=== PATIENT | female | born 2000 | race Hispanic/Latino ===

== ENCOUNTER 2025-03-28 12:24 | Emergency (ER) | payer OTHER ==
[~2025-03-28] VITALS: Ht 157.5 cm; Wt 52.2 kg
--- NOTE | 2025-03-28 12:33 | ERN ---
ED Note History of Present Illness Stated Complaint: FEVER Chief Complaint: Fever Time Seen by MD: 12:27 Dictation: PATIENT IS A 25-YEAR-OLD FEMALE COMING IN TODAY WITH COMPLAINTS OF FLU-LIKE SYMPTOMS FOR THE LAST 5-6 DAYS TO INCLUDE SORE THROAT PAINFUL SWALLOWING SHE HAS HAD A DRY COUGH HEADACHE. ADDITIONALLY SHE HAS HAD NAUSEA VOMITING IN THE PAST AND MALAISE. NO LOSS OF TASTE OR SMELL. HER LAST INTAKE OF ANTIPYRETICS WAS MOTRIN AT MIDNIGHT. STATES SHE SAW HER PRIMARY CARE DOCTOR TWO DAYS AGO WHO SWABBED HER FOR SARS AND INFLUENZA TOLD HER EVERYTHING WAS NEGATIVE GAVE HER IBUPROFEN. SHE STATES SHE HAS NOT BEEN FEELING ANY BETTER AND COMING IN FOR FURTHER EVALUATION. SHE HAS HAD NO ABDOMINAL PAIN. NO CHANGE IN URINATION. SHE HAS A COUGH IS DRY. 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 Allergies: Coded Allergies: No Known Allergies (Unverified Allergy, Unknown, 03/28/25) Past Medical History RN Note Reviewed/Agreed w/PFSH: Yes Review of System Dictation CONSTITUTIONAL: NEGATIVE EXCEPT FOR HPI FEVER CHILLS HEAD/FACE: NEGATIVE EXCEPT FOR HPI EENT: NEGATIVE EXCEPT FOR HPI SORE THROAT WITH PAINFUL SWALLOWING RESPIRATORY: NEGATIVE EXCEPT FOR HPI DRY PERSISTENT COUGH GASTROINTESTINAL/ABDOMINAL: NEGATIVE EXCEPT FOR HPI GENITOURINARY: NEGATIVE EXCEPT FOR HPI MUSCULOSKELETAL: NEGATIVE EXCEPT FOR HPI INTEGUMENTARY: NEGATIVE EXCEPT FOR HPI NEUROLOGICAL/PSYCH: NEGATIVE EXCEPT FOR HPI HEMATOLOGIC/LYMPHATIC: NEGATIVE EXCEPT FOR HPI ALL SYSTEMS NEGATIVE, EXCEPT NOTED ABOVE. 13 POINT REVIEW OF SYSTEMS ASSESSED AND ALL NEGATIVE EXCEPT FOR ABOVE. Initial Vital Sign VS Vital Signs Date Time Temp Pulse Resp B/P (MAP) Pulse Ox O2 Delivery O2 Flow Rate FiO2 03/28/25 12:29 102.7 98 20 135/76 98 Room Air 03/28/25 13:17 0 21 Physical Exam Dictation VITAL SIGNS REVIEWED MILD ACUTE DISTRESS, WELL DEVELOPED, NOURISHED. HEAD AND FACE: NON-TRAUMATIC. EYES: PERRL, PINK CONJUNCTIVAS, EYELID NO TRAUMA, ANTERIOR CHAMBER WITH ARCUS SENILIS. EARS: PINNAS INTACT AND NO SIGNS OF TRAUMA OR ERYTHEMA EAR CANALS CLEAR AND NO DISCHARGE TM NO ERYTHEMA NOSE: NO DISCHARGE, NO BLEEDING. OROPHARYNX: MOUTH NORMAL, TONGUE PINK, PHARYNX CLEAR, MODERATE PHARYNGEAL ERYTHEMA, TONSILS NO EXUDATES, NO ABSCESSES NOTED, MUCOUS MEMBRANE MOIST UVULA MIDLINE, VOICE IS CLEAR NECK: SUPPLE, NON-TENDER, NO THYROMEGALY, NO MASSES, NO JVD, NO BRUITS BREAST:DEFERRED CHEST:NO TENDERNESS, NO CREPITUS, NO PARADOXICAL MOVEMENT, NO RETRACTIONS LUNGS:CLEAR, WELL-VENTILATED, SYMMETRIC, NO RALES, NO WHEEZING, NO RHONCHI, NO STRIDOR, GOOD BREATH SOUNDS BILATERALLY INTERMITTENT DRY COUGH NOTED NO TACHYPNEA NO RETRACTIONS HEART: REGULAR RATE, REGULAR RHYTHM, NO MURMUR, NO GALLOPS VASCULAR: NO PERIPHERAL EDEMA, ABDOMEN: SOFT, POSITIVE BOWEL SOUNDS, NONDISTENDED, NO GUARDING, NONTENDER, NO REBOUND, NO MASSES NO HEPATOMEGALY, NO SPLENOMEGALY, NO COVINGTON'S SIGN, NO HERNIAS. RECTAL: DEFERRED GENITAL: DEFERRED NEUROLOGICAL: NORMAL SPEECH, MOTOR FUNCTION INTACT, SENSORY FUNCTION INTACT MUSCULOSKELETAL: NECK NONTENDER, FULL RANGE OF MOTION, BACK NONTENDER, FULL RANGE OF MOTION, EXTREMITIES: NONTENDER, FULL RANGE OF MOTION SKIN: COLOR PINK, DRY, NO TURGOR, NO RASH, NO LACERATIONS, NO ABRASIONS, NO CONTUSIONS. LYMPHATIC: DEFERRED Results (Laboratory/Radiology) Laboratory/Radiology Laboratory Tests Test 03/28/25 12:30 03/28/25 12:38 Urine Color YELLOW (YELLOW) Urine Appearance CLOUDY (CLEAR) H Urine pH 5.5 (5.0-8.0) Urine Specific [place] 1.019 (1.001-1.031) Urine Protein 20 mg/dL (NEGATIVE) H Urine Glucose (UA) NEGATIVE mg/dL (NEGATIVE) Urine Ketones NEGATIVE mg/dL (NEGATIVE) Urine Occult Blood +- (TRACE) (NEGATIVE) H Urine Nitrate NEGATIVE (NEGATIVE) Urine Bilirubin NEGATIVE mg/dL (NEGATIVE) Urine Urobilinogen 2.0 mg/dL (0.2-1.0) H Urine Leukocyte Esterase NEGATIVE Erika/uL Urine RBC 2-5 /HPF (0-1) H Urine WBC 11-25 /HPF (0-1) H Urine Squamous Epithelial Cells FEW /HPF (0-2) Urine Bacteria None /HPF (None Seen) Influenza Type A Antigen Negative For Type A Influenza Type B Antigen Negative For Type B SARS-CoV-2 Antigen (Rapid) PRESUMPTIVE NEGATIVE Group A Streptococcus Rapid negative (NEGATIVE) CHEST X-RAY NEGATIVE Labs Reviewed?: Yes ED Course ED Course Orders Procedure Category Date Status Time Covid19 (Sars Antigen LAB 03/28/25 Complete Rapid) 12:30 Influenza Type A & B, LAB 03/28/25 Complete Rapid 12:30 Rapid (Group A Strep) LAB 03/28/25 Complete 12:30 Urinalysis Profile LAB 03/28/25 Complete 12:30 Ibuprofen 600 Mg PHA 03/28/25 Complete Tablet (Motrin) 12:30 Dexamethasone 4mg/Ml PHA 03/28/25 Complete 1ml Vial (Dexametha 12:30 Culture Urine ROLF 03/28/25 Logged 13:01 Chest 1vw RAD 03/28/25 Taken 13:25 Current Medications Medications (Trade) Dose Ordered Sig/Nia Route PRN Reason Start Time Stop Time Status Last Admin Dose Admin Dexamethasone Sodium Phosphate (dexaMETHasone 4MG/ML 1ML VIAL) 8 mg ONCE ONCE IM 03/28/25 12:30 03/28/25 12:33 DC 03/28/25 13:06 Ibuprofen (moTRIN) 600 mg ONCE ONCE PO 03/28/25 12:30 03/28/25 12:33 DC 03/28/25 13:05 Vital Signs Date Time Temp Pulse Resp B/P (MAP) Pulse Ox O2 Delivery O2 Flow Rate FiO2 03/28/25 13:17 102.7 86 20 135/76 98 Room Air* 0 21 03/28/25 13:05 102.0 03/28/25 12:29 102.7 98 20 135/76 98 Room Air Medical Decision Making [facility] 1420/MEDICAL DISCHARGE MAKING BASED ON SWABS FOR FLU COVID AND STREP. ALL ARE NEGATIVE. CHEST X-RAY CLEAR AND WAS PERFORMED DUE TO PERSISTENT DRY COUGH PATIENT WE WILL BE TREATED EMPIRICALLY FOR ACUTE PHARYNGITIS UNSPECIFIED WITH VIRAL URI. SHE WILL BE LOADED WITH THE AZITHROMYCIN 500 MG P.O. SENT HOME WITH THE AZITHROMYCIN 500 MG Q.DAY FOR FIVE DAYS STARTING TOMORROW MEDROL DOSEPAK AND ALBUTEROL DX & DISP Disposition: Discharge Departure Impression: Primary Impression: Acute pharyngitis, unspecified Additional Impressions: Viral URI with cough, Fever Condition: Stable Scripts Budesonide (Pulmicort Flexhaler) 90 Mcg Aer.pow.ba 90 MCG IH BID, #1 INHALER TWO PUFFS BY MOUTH TWICE A DAY FOR SEVEN DAYS. Prov: LISA RUEDA DIRECTOR OF CLINICAL SERVICES 03/28/25 Methylprednisolone (Medrol) 4 Mg Tab.ds.pk 1 TAB PO AD for 6 Days, #21 TAB 0 Refills 6 on day 1 then reduce by one tablet daily until gone Prov: LISA RUEDAP 03/28/25 Azithromycin (Zithromax Tri-Jai) 500 Mg Tablet 500 MG PO DAILY for 5 Days, #5 TAB Prov: LISA RUEDAP 03/28/25 Additional Instructions: FOLLOW-UP WITH PRIMARY CARE PROVIDER IN 1 TO 2 DAYS. TAKE MEDICATIONS DIRECTED HERE IN THE EMERGENCY ROOM. OKAY TO CONTINUE HOME MEDICATIONS UNLESS OTHERWISE DISCUSSED DURING YOUR VISIT IN THE EMERGENCY ROOM TODAY. RETURN TO YOUR NEAREST EMERGENCY ROOM IF SYMPTOMS WORSEN OR IF THERE IS NO IMPROVEMENT. CALL 911 IF YOU NEED IMMEDIATE ASSISTANCE. TAKE TYLENOL OR MOTRIN [id number] NTER NEEDED AND IF NO CONTRAINDICATIONS ARE PRESENT. INCREASE ORAL HYDRATION. A WOUND CULTURE OR URINE CULTURE WAS ORDERED HERE IN THE EMERGENCY ROOM DEPARTMENT PLEASE FOLLOW-UP WITH PRIMARY CARE PROVIDER AND ADVISE THEM TO GET REPEAT PORTS FROM OUR FACILITY. IF YOU HAD ANY COCO WRAP/SPLINTS THAT WERE APPLIED HERE, PLEASE DO NOT REMOVE THEM UNTIL YOU SEE YOUR PRIMARY CARE OR [facility]. TAKE ANTIBIOTICS DIRECTED UNTIL GONE. USE BUDESONIDE INHALER TWICE A DAY FOR THE NEXT SEVEN DAYS. TAKE MEDROL DOSEPAK DIRECTED UNTIL GONE. SEE YOUR PRIMARY CARE DOCTOR FOR FOLLOW UP IN 2-3 DAYS IF NO IMPROVEMENT INCREASE YOUR WATER INTAKE. Referrals: SELF,REFERRAL (PCP) Time of Disposition: 14:25 I have reviewed the case, and I agree with, Diagnosis and Plan LISA RUEDA NP Mar 28, 2025 12:33
[2025-03-28 12:48] LABS: APPEARANCE,URINE CLOUDY (CLEAR); GLUCOSE, URINE (UA) NEGATIVE (NEGATIVE); LEUKOCYTE ESTERASE ,URINE NEGATIVE Leu/uL (NEGATIVE); NITRATE,URINE NEGATIVE (NEGATIVE); OCCULT BLOOD,URINE +- (TRACE) (NEGATIVE)
[2025-03-28 12:54] LABS: ADD UA MICROSCOPIC YES
[2025-03-28 12:56] LABS: SQUAMOUS EPITHELIAL CELL,UR FEW /HPF (0-2)
[2025-03-28 13:05] VITALS: TEMP 102
[2025-03-28 13:07] LABS: RAPID GROUP A STREP negative (NEGATIVE)
[2025-03-28 13:17] LABS: COVID19 (SARS ANTIGEN RAPID) PRESUMPTIVE NEGATIVE (NEGATIVE); INFLUENZA TYPE A Negative For Type A (NEGATIVE); INFLUENZA TYPE B Negative For Type B (NEGATIVE)
[2025-03-28] MEDS ORDERED: AZIT500T2 PO (14:27)
[2025-03-28] MEDS ORDERED: BUDE90AE3 IH (14:27)
[2025-03-28] MEDS ORDERED: METH4TAB3 PO (14:27)
--- NOTE | 2025-03-28 14:27 | HMCIMG ---
EXAM: CR Chest, 1 View. CLINICAL HISTORY: SOB/COUGH COMPARISON: None provided. FINDINGS: LUNGS: There is no mass, infiltrate, or acute pulmonary abnormality. PLEURAL SPACES: No evidence of pleural effusion or pneumothorax. MEDIASTINUM: The cardiomediastinal silhouette is within normal limits. BONES: No aggressive appearing osseous lesion seen. IMPRESSION: No acute cardiopulmonary pathology is evident. /[place]
[2025-03-28] MEDS: AZITHROMYCIN 250 MG TABLET PO ONE (14:51)
[2025-03-28 15:01] VITALS: BP 117/66; PULSE 115; RESP 13; TEMP 99.1; O2SAT 96
== END 2025-03-28 15:11 | disposition home or self-care (01) ==
LOC: EDH 12:24
DX: J02.9 Acute pharyngitis, unspecified (principal); B97.89 Other viral agents as the cause of diseases classified elsewhere; R50.9 Fever, unspecified; Z20.822 Contact with and (suspected) exposure to COVID-19
CPT/HCPCS: 99284; 71045; 87426; 87086; 87880; 87804 ×2; 81001; 96372; J1100